=== PATIENT | male | born 1990 | race Caucasian/White ===

== ENCOUNTER 2019-05-16 08:13 | Emergency (ER) | payer SELFPAY ==
[2019-05-16] MEDS ORDERED: NS 0.9% 1000 ML** 1,000 ML IV ONE (08:24)
--- OUTSIDE RECORDS SUMMARY | 2019-05-16 08:26 | XMS REPORT | Continuity of Care Document ---
:1990 External Reference #:[id number] Author Name Loreta Bey Care Team Providers Name Role Phone Juve Acevedo MD Primary Care Physician Unavailable Payers Date Identification Numbers Payment Provider Subscriber Expires: 2019 Policy Number: [id number] Medicaid Misha [employer] Name: 1 1 [address] PayID: [id number] [place] [address] Expires: 2019 Policy Number: [id number] Medicaid Misha Mitchell Group Name: 1 1 [address] PayID: [id number] [place] [address] Problems Active Problems Provider Date Attention-deficit hyperactivity disorder, unspecified Juve Acevedo MD Onset: type Chronic hepatitis C Juve Acevedo MD Onset: 03/03/2019 Social History Type Date Description Comments Sex Unknown Tobacco Use Start: Unknown End: Unknown Patient is a former smoker Smoking Status Reviewed: 03/20/19 Patient is a former smoker Allergies, Adverse Reactions, Alerts Description No Known Drug Allergies Medications Description No Active Medications Vital Signs Date Vital Result Comment 03/20/2019 10:45am Height 71 inches 5'11" Weight 151.12 lb Heart Rate 72 /min BP Systolic Sitting 112 mmHg BP Diastolic Sitting 80 mmHg Respiratory Rate 14 /min Body Temperature 98.2 F BMI (Body Mass Index) 21.1 kg/m2 03/03/2019 11:56am Height 71 inches 5'11" Weight 152.00 lb Heart Rate 74 /min BP Systolic 118 mmHg BP Diastolic 82 mmHg O2 % BldC Oximetry 98 % BMI (Body Mass Index) 21.2 kg/m2 Results Test Date Facility Test Result H/L Range Note Laboratory test [facility] Hepatitis C 404640 Abnormal Undetected 1 finding [address] Rna Quant IU/[place] [address] [phone] Result in log IU/mL is 5.65. ADDITIONAL INFORMATION The quantification range of this assay is 15 to 100,000,000 IU/mL (1.18 log to 8.00 log IU/mL). Testing was performed using the dora HCV test ([employer] with the dora [employer]0 System. Test Performed by: [facility] [address] [place] [address] Encounters Type Date Location Provider Dx Diagnosis Office Visit 03/03/2019 [facility] Internal Juve Acevedo MD B18.2 Chronic viral 1:20p Medicine - [address] hepatitis C F90.9 Attention-deficit hyperactivity disorder, unspecified type Plan of Treatment Future Appointment(s):04/02/2019 1:30 pm - Brittany Jordan NP at [facility]94/01/2019 - Brittany Jordan NPB18.2 Chronic viral hepatitis CFollow up:2-3 weeks
--- OUTSIDE RECORDS SUMMARY | 2019-05-16 08:26 | XMS REPORT | Continuity of Care Document ---
:1990 External Reference #:[id number] Author Name Brittany Jordan NP (transmitted by agent of provider Loreta Bey) Address [address] [facility] [place] [address] Care Team Providers Name Role Phone Juve Acevedo MD - Hospitalist Care Team Information Training And Development Head [phone] Problems Active Problems Provider Date Attention-deficit hyperactivity disorder, unspecified Juve Acevedo MD Onset: type Chronic hepatitis C Juve Acevedo MD Onset: 03/03/2019 Social History Type Date Description Comments Sex Unknown ETOH Use Denies alcohol use Tobacco Use Start: Unknown End: Unknown Patient is a former smoker Recreational Drug Use Former Drug User Smoking Status Reviewed: 04/10/19 Patient is a former smoker Allergies, Adverse Reactions, Alerts Description No Known Drug Allergies Medications Description No Active Medications Immunizations Description No Information Available Vital Signs Date Vital Result Comment 04/10/2019 8:33am Height 71 inches 5'11" Weight 151.00 lb Heart Rate 72 /min BP Systolic Sitting 112 mmHg BP Diastolic Sitting 74 mmHg Respiratory Rate 14 /min Body Temperature 97.8 F BMI (Body Mass Index) 21.1 kg/m2 03/20/2019 10:45am Height 71 inches 5'11" Weight 151.12 lb Heart Rate 72 /min BP Systolic Sitting 112 mmHg BP Diastolic Sitting 80 mmHg Respiratory Rate 14 /min Body Temperature 98.2 F BMI (Body Mass Index) 21.1 kg/m2 Results Test Date Facility Test Result H/L Range Note Laboratory test 03/20/2019 [facility] Hepatitis B Negative Negative finding [address] [place] [address] [phone] Hepatitis C Rna Quant [id number] IU/mL Abnormal Undetected 1 Fibro Test-Actitest, 03/20/2019 [facility] FibroTest Score 0.08 Serum [address] [place], [place] [id number] [phone] FibroTest Stage F0 FibroTest Interpretation no fibrosis 2 ActiTest Score 0.31 ActiTest Grade A1 ActiTest Interpretation minimal activity 3 FibroTest-ActiTest Comment See Comment 4 [employer] Serial Number [id number] Apolipoprotein A1, S 179 mg/dL >=120 [id number], S 138 mg/dL 100 - 280 Haptoglobin, S 91 mg/dL 30 - 200 Alanine Aminotransferase (Alt) 65 U/L Abnormal 7-55 Gamma Glutamyltransferase GGT 26 U/L 8 - 61 Bilirubin, Total, S 0.8 mg/dL <=1.2 5 HIV 1&2 p24 03/20/2019 [facility] HIV 4th Negative Negative Screen [address] Generation [place], [place] [id number] [phone] Laboratory 03/20/2019 [facility] Hepatitis C 1a Abnormal Undetected 6 test finding [address] [place] [address] [phone] Comp 03/20/2019 [facility] Sodium 139 mmol/L Normal 135-145 Metabolic [address] Panel [place], [place] [id number] [phone] Potassium 3.9 mmol/L Normal 3.5-5.0 Chloride 102 mmol/L Normal 101-111 Co2 Carbon Dioxide 27 mmol/L Normal 22-32 Anion Gap 10 mmol/L Normal 2-11 Calcium 9.9 mg/dL Normal 8.6-10.3 Albumin 5.0 g/dL Normal 3.2-5.2 Total Bilirubin 1.00 mg/dL Normal 0.2-1.0 Glucose 86 mg/dL Normal 70-100 Blood Urea Nitrogen 13 mg/dL Normal 6-24 Creatinine 1.03 mg/dL Normal 0.67-1.17 BUN/Creatinine Ratio 12.6 Normal 8-20 Total Protein 8.1 g/dL Normal 6.4-8.9 Globulin 3.1 g/dL Normal 2-4 Albumin/Globulin Ratio 1.6 Normal 1-3 Alkaline Phosphatase 60 U/L Normal 34-104 Alt 60 U/L High 7-52 Ast 37 U/L Normal 13-39 Egfr Non- 86.6 >60 Egfr 104.8 >60 7 Laboratory 03/03/2019 [facility] Hepatitis C 596143 Abnormal Undetected 8 test finding [address] Rna Quant IU/[place] [address] [phone] 1 Result in log IU/mL is 5.34. ADDITIONAL INFORMATION The quantification range of this assay is 15 to 100,000,000 IU/mL (1.18 log to 8.00 log IU/mL). Testing was performed using the dora HCV test ([employer] with the dora Eli Nutrition0 System. Test Performed by: [facility] [address] [place] [address] 2 FibroTest estimates liver fibrosis FibroTest Score Stage Interpretation 0.00-0.21 F0 no fibrosis 0.21-0.27 F0-F1 no fibrosis 0.27-0.31 F1 minimal fibrosis 0.31-0.48 F1-F2 minimal fibrosis 0.48-0.58 F2 moderate fibrosis 0.58-0.72 F3 advanced fibrosis 0.72-0.74 F3-F4 advanced fibrosis 0.74-1.00 F4 severe fibrosis (Cirrhosis) 3 minimal activity ActiTest estimates necroinflammatory activity ActiTest Score Grade Interpretation 0.00-0.17 A0 no activity 0.17-0.29 A0-A1 no activity 0.29-0.36 A1 minimal activity 0.36-0.52 A1-A2 minimal activity 0.52-0.60 A2 significant activity 0.60-0.62 A2-A3 significant activity 0.62-1.00 A3 severe activity 4 The reliability of results is dependent on compliance with the preanalytical and analytical conditions recommended by [employer]. The tests have to be deferred for: acute hemolysis, acute hepatitis, acute inflammation, extra hepatic cholestasis. The advice of a specialist should be sought for interpretation in chronic hemolysis and Gilbert's syndrome. The test interpretation is not validated in liver transplant patients. Isolated extreme values of one of the components should lead to caution in interpreting the results. In case of discordance between a biopsy result and a test, it is recommended to seek advice of a specialist. The causes of these discordances could be due to a flaw of the test or to a flaw in the biopsy: i.e. a liver biopsy has a 33% variability rate for one fibrosis stage. FibroTest is interpretable for chronic hepatitis B and C, alcoholic and non alcoholic steatosis. ActiTest is interpretable for chronic hepatitis B and C. ADDITIONAL INFORMATION This test was developed and its performance characteristics determined by [facility] in a manner consistent with CLIA requirements. This test has not been cleared or approved by the U.S. Food and Drug Administration. 5 Test Performed by: [place] [id number] Test Performed by: [facility] [place] [address] 6 ADDITIONAL INFORMATION This test was performed using the Claire RealTime HCV Genotype II assay ([employer] [place], [place]). Test Performed by: [place] [address] 7 Because ethnic data is not always readily available, this report includes an eGFR for both -Americans and non- Americans. The National Kidney Disease Education Program (NKDEP) does not endorse the use of the MDRD equation for patients that are not between the ages of 18 and 70, are , have extremes of body size, muscle mass, or nutritional status, or are non- or non-. According to the National Kidney Foundation, irrespective of diagnosis, the stage of the disease is based on the level of kidney function: Stage Description GFR(mL/min/1.73 m(2)) 1 Kidney damage with normal or decreased GFR 90 2 Kidney damage with mild decrease in GFR 60-89 3 Moderate decrease in GFR 30-59 4 Severe decrease in GFR 15-29 5 Kidney failure <15 (or dialysis) 8 Result in log IU/mL is 5.65. ADDITIONAL INFORMATION The quantification range of this assay is 15 to 100,000,000 IU/mL (1.18 log to 8.00 log IU/mL). Testing was performed using the dora HCV test ([employer] with the dora [employer] Nutrition0 System. Test Performed by: [facility] [address] [place] [address] Procedures Description No Information Available Medical Devices Description No Information Available Encounters Type Date Location Provider Dx Diagnosis Office Visit 03/20/2019 [facility] Brittany Elias B18.2 Chronic viral 10:30a Infectious TIFFANY Jordan hepatitis C Diseases Office Visit 03/03/2019 [facility] Internal Juve Acevedo MD B18.2 Chronic viral 1:20p Medicine - [address] hepatitis C F90.9 Attention-deficit hyperactivity disorder, unspecified type Assessments Date Code Description Provider 04/10/2019 B18.2 Chronic viral hepatitis C Brittany Jordan NP 03/20/2019 B18.2 Chronic viral hepatitis C Brittany Jordan NP 03/03/2019 B18.2 Chronic viral hepatitis C Juve Acevedo MD 03/03/2019 F90.9 Attention-deficit hyperactivity Juve Acevedo MD disorder, unspecified type Plan of Treatment 04/10/2019 - Brittany Jordan NPB18.2 Chronic viral hepatitis CComments :Take Epclusa as directed. After 4 weeks you will need to have labs drawn. Please call the office with any questions or concerns.Follow up:6 weeks Functional Status Description No Information Available Mental Status Description No Information Available Referrals Refer to Reason for Referral Status Appt Date León Doe MD chronic hepatitis C infection (hx of IV Sent 2018 heroin). [address] [facility] [place] [address] [place] [address] [phone] [facility] History of ADHD as child, requesting Sent restart of psychostimulants. Has history of IVDU and incarceration. [address] [place] [address] [phone]
[2019-05-16 08:51] LABS: ABS Eosinophils 0.1 10^3/ul (0-0.6); ABS Lymphocytes 1.2 10^3/ul (1.0-4.8); ABS Monocytes 0.3 10^3/ul (0-0.8); ABS Neutrophils 4.5 10^3/ul (1.5-7.7); Eosinophil % 1.3 %; Hematocrit 45 % (42-52); Hemoglobin 15.6 g/dL (14.0-18.0); Lymphocyte % 19.1 %; Mean Corpuscular HGB Conc 35 g/dL (31-36); Mean Corpuscular Hemoglobin 32 pg (27-31); Mean Corpuscular Volume 91 fL (80-94); Mean Platelet Volume 7.5 fL (7.4-10.4); Nucleated Red Blood Cells % 0.1; Platelet Count 195 10^3/uL (150-450); Red Blood Count 4.91 10^6 /uL (4.18-5.48); Red Cell Distribution Width 13 % (10-15); White Blood Count 6.1 10^3/uL (3.5-10.8)
[2019-05-16 09:11] LABS: ALT 56 U/L (7-52); AST 61 U/L (13-39); Albumin 4.2 g/dL (3.2-5.2); Albumin/Globulin Ratio 1.9 (1-3); Alkaline Phosphatase 54 U/L (34-104); Anion Gap 7 mmol/L (2-11); Blood Urea Nitrogen 11 mg/dL (6-24); CO2 Carbon Dioxide 28 mmol/L (22-32); Calcium 8.6 mg/dL (8.6-10.3); Chloride 105 mmol/L (101-111); Creatine Kinase 163 U/L (10-223); EGFR African American 85.6 (>60); EGFR Non-African American 70.7 (>60); Globulin 2.2 g/dL (2-4); Glucose 175 mg/dL (70-100); Potassium 4.1 mmol/L (3.5-5.0); Sodium 140 mmol/L (135-145); Total Protein 6.4 g/dL (6.4-8.9)
--- NOTE | 2019-05-16 09:16 | ED ---
Substance Abuse/Use - HPI Summary HPI Summary: 29 year old male presenting to [facility] by EMS for a heroin overdose, last seen normal at 0430. EMS was called when the neighbors found him lying in the driveway shaking and unresponsive. EMS gave him 4 mg Narcan, 2mg IV and 2mg intranasally, without response. Supplies found by EMS and given to ED security, as per triage note. According to his girlfriend, the patient does not use regularly; it has been 4 month since last usage. She says he snorted heroin after she went to bed at 0430, and he admitted to snorting and injecting it this morning. He reports feeling freezing, dizzy, confused, and claims no recollection of heroin intake. He denies history of smoking, alcohol, or other drugs. - History Of Current Complaint Chief Complaint: EDOverdose Stated Complaint: POSSIBLE OVERDOSE Time Seen by Provider: 05/16/19 08:24 Hx Obtained From: Patient, EMS, Other: - Girlfriend Onset/Duration of Drug/ETOH Abuse: Hours Ingestion History: Type/Name Of Drug - Heroin, Approximate Time Of Ingestion - 0430 Overdose Characteristics: IV, Other - Intranasal Timing Of Abuse: Recent Cessation For A Period Of - 4 months Severity Initially: Moderate Severity Currently: Moderate Character: Other - Confused Alleviating Factor(s): Nothing - narcan did not alleviate Associated Signs And Symptoms: Confused, Tremulous Related Hx: Drug/Alcohol Last Used @ - 4 months ago - Allergies/Home Medications Allergies/Adverse Reactions: Allergies Allergy/AdvReac Type Severity Reaction Status Date / Time No Known Allergies Allergy Verified 05/17/19 03:25 Home Medications: Home Medications hydrOXYzine HCL TAB* [Atarax 25 MG TAB*] 25 mg PO TID PRN 05/16/19 [History Confirmed 05/16/19] PMH/Surg Hx/FS Hx/Imm Hx Previously Healthy: Yes Endocrine/Hematology History: Denies: Hx Diabetes Psychiatric History: Reports: Hx Substance Abuse Infectious Disease History: No Infectious Disease History: Denies: Traveled Outside the [place] in Last 30 Days - Family History Known Family History: Negative: Diabetes - Social History Alcohol Use: Occasionally Hx Substance Use: Yes Substance Use Type: Reports: Heroin Hx Tobacco Use: Yes Smoking Status (MU): Former Smoker Review of Systems Positive: Chills, Other - shaking Neurological: Other - Dizziness Positive: Other - Confused All Other Systems Reviewed And Are Negative: Yes Physical Exam - Summary Physical Exam Summary: NEURO EXAM VITAL SIGNS: Reviewed. GENERAL: Patient is a well-developed and nourished male who is lying in the stretcher shivering.Patient is not in any acute respiratory distress. HEAD AND FACE: No signs of trauma. No hematomas or skull depressions. No sinus tenderness. EYES: PERRLA, EOMI x 2, No injected conjunctiva, no nystagmus. No photophobia. EARS: Hearing grossly intact. Ear canals and tympanic membranes are within normal limits. MOUTH: Oropharynx within normal limits. NECK: Supple, trachea is midline, no adenopathy, no JVD, no carotid bruit, no c- spine tenderness, neck with full ROM. No meningeal signs, no Kernig's or Brudzinskis signs. CHEST: Symmetric, no tenderness at palpation. LUNGS: Clear to auscultation bilaterally. No wheezing or crackles. CVS: Regular rate and rhythm, S1 and S2 present, no murmurs or gallops appreciated. ABDOMEN: Soft, non-tender. No signs of distention. No rebound, no guarding, and no masses palpated. Bowel sounds are normal. EXTREMITIES: FROM in all major joints, no edema, no cyanosis or clubbing. NEURO: Alert and oriented x 3. No acute neurological deficits. Speech is normal and follows commands. SKIN: Dry and warm. GCS: 15 Triage Information Reviewed: Yes Vital Signs On Initial Exam: Initial Vitals Temp Pulse Resp BP Pulse Ox 97.4 F 75 16 125/92 99 05/16/19 08:18 05/16/19 08:18 05/16/19 08:18 05/16/19 08:18 05/16/19 08:18 Vital Signs Reviewed: Yes - [place] Coma Scale Best Eye Response: 4 - Spontaneous Best Motor Response: 6 - Obeys Commands Best Verbal Response: 5 - Oriented Coma Scale Total: 15 Diagnostics - Vital Signs Vital Signs Temp Pulse Resp BP Pulse Ox 05/16/19 08:18 97.4 F 75 16 125/92 99 - Laboratory Lab Results: Lab Results 05/16/19 Range/Units 08:41 WBC 6.1 (3.5-10.8) 10^3/uL RBC 4.91 (4.18-5.48) 10^6 /uL Hgb 15.6 (14.0-18.0) g/dL Hct 45 (42-52) % MCV 91 (80-94) fL MCH 32 H (27-31) pg MCHC 35 (31-36) g/dL RDW 13 (10-15) % Plt Count 195 (150-450) 10^3/uL MPV 7.5 (7.4-10.4) fL Neut % (Auto) 73.8 % Lymph % (Auto) 19.1 % [place] % (Auto) 5.4 % Eos % (Auto) 1.3 % Baso % (Auto) 0.4 % Absolute Neuts (auto) 4.5 (1.5-7.7) 10^3/ul Absolute Lymphs (auto) 1.2 (1.0-4.8) 10^3/ul Absolute Monos (auto) 0.3 (0-0.8) 10^3/ul Absolute Eos (auto) 0.1 (0-0.6) 10^3/ul Absolute Basos (auto) 0.0 (0-0.2) 10^3/ul Absolute Nucleated RBC 0.0 10^3/ul Nucleated RBC % 0.1 Result Diagrams: 05/16/19 08:41 05/16/19 08:41 Lab Statement: Any lab studies that have been ordered have been reviewed, and results considered in the medical decision making process. - CT Brain CT CT Interpretation Completed By: Radiologist Summary of CT Findings: Brain ct shows no acute intracranial pathology. ED Physician has reviewed this report. - EKG 0836 Cardiac Rate: NL - 81 bpm EKG Rhythm: Sinus Rhythm Summary of EKG Findings: EKG at 0836 shows normal sinus rhythm at 81 bpm. No STEMI. No acute changes. Re-Evaluation - Re-Evaluation 1st Re-eval Re-Evaluation Time: 09:49 Change: Worse Comment: Re-eval at 0949. Patient complains of headache. Girlfriend states that abrasion on cheek is from falling on the pavement. Course/Dx - Course Assessment/Plan: Patient is a 21-year-old male who presents to the emergency department via ambulance with a chief complaint of being found in the neighbor s driveway. The patient was on the ground unresponsive. As per EMS the patient had agonal breathing, he was given 4 mg Narcan, Toradol, and the patient woke up. At this time the patient is alert and oriented 3. He has no complaints at this time. Blood tests without any significant abnormality except for creatinine 1.22, glucose 174, lactic acid is 2.6, AST is 61 and AST 56. Salicylates, acetaminophen, serum alcohol within normal limits. In the ED course the patient continues to be hemodynamically stable. Patient has no complaints. Patients girlfriend reported that he might of had a head contusion therefore decided to do a head CT. Head CT impression: No acute intracranial pathology. At this point the patient is alert and oriented 3. The patient is sober and ambulating. The patient is eating and drinking without any nausea vomiting. The patient will be discharged home with his mother. Patient declined to give a urine sample. Mother agrees. I discussed all the findings and test results with the patient. Patient was instructed to return to the emergency room immediately if any of the symptoms return or worsen. Plan of care was discussed with the patient and understands and agrees. All questions were answered at patient satisfaction. There were no further complaints or concerns. Lung exam before discharge: CTA B/L. Good air exchange. No wheezing or crackles heard. CVS: S1 and S2 present. No murmurs appreciated. Patient is alert and oriented x 3. Patient is hemodynamically stable. Patient will be discharged home with follow up PCP in the next 2-3 days - Diagnoses Provider Diagnoses: Overdose Discharge ED - Sign-Out/Discharge Documenting (check all that apply): Patient Departure Patient Received Moderate/Deep Sedation with Procedure: No - Discharge Plan Condition: Stable Disposition: HOME Referrals: Juve Acevedo MD [Primary Care Provider] - Additional Instructions: Follow up with your primary care provider in 2-3 days. Return to the Emergency Department if symptoms worsen. - Billing Disposition and Condition Condition: STABLE Disposition: Home - Attestation Statements Document Initiated by Scribe: Yes Documenting Scribe: Maxine Acosta Provider For Whom Scribe is Documenting (Include Credential): Dr. Wilfredo Ash MD. Scribe Attestation: IDaniel Kathryn O'Connor, scribed for Dr. Wilfredo Ash MD. on at 1121. Scribe Documentation Reviewed: Yes Provider Attestation: The documentation as recorded by the scribe, Daniel Quinn, Maxine Ness accurately reflects the service I personally performed and the decisions made by me, Dr. Wilfredo Ash MD. Status of Scribe Document: Viewed
[2019-05-16 09:18] LABS: Acetaminophen < 15 mcg/mL; Alcohol < 10 mg/dL (<10); Salicylate < 2.50 mg/dL (<30)
[2019-05-16] MEDS ORDERED: Naloxone* 0.4 MG/ML 10 ML VIAL ONE (09:56)
[2019-05-16] MEDS ORDERED: Naloxone* 0.4 MG/ML 1 ML VIAL IV PUSH ONE (10:02)
[2019-05-16 11:48] VITALS: BP 115/70
== END 2019-05-16 11:36 | disposition home or self-care (01) ==
LOC: ED 08:13
DX: T40.1X1A Poisoning by heroin, accidental (unintentional), initial encounter (principal); Y92.9 Unspecified place or not applicable; Z87.891 Personal history of nicotine dependence
CPT/HCPCS: 36415; 70450; 80053; 80320; 80329; 82550; 83605; 85025; 93005; 96361; 96374; 99282; G0480; J2310

== ENCOUNTER 2019-05-17 03:08 | Emergency (ER) | payer SELFPAY ==
--- NOTE | 2019-05-17 03:38 | ED ---
Medical Screening - HPI Summary HPI Summary: This patient is a 29 year old male presenting to [facility] with a chief complaint of drug test. He had an overdose yesterday morning and was here when he stated he used overdoses. He initially revealed a urine drug test but now wants to have one because he is concerned there was fentanyl. He states he was an IV drug user 5-6 years ago and he has not used drugs. He states 2 hours ago he started to feel strange. He did not recall taking the drugs for his overdose and states he has no desire to do them. - History of Current Complaint Chief Complaint: EDGeneral Stated Complaint: GENERAL PER PT PMH/Surg Hx/FS Hx/Imm Hx Endocrine/Hematology History: Denies: Hx Diabetes Psychiatric History: Reports: Hx Substance Abuse Infectious Disease History: Yes Infectious Disease History: Denies: Traveled Outside the US in Last 30 Days - Family History Known Family History: Negative: Diabetes - Social History Alcohol Use: Occasionally Hx Substance Use: Yes Substance Use Type: Reports: Heroin Hx Tobacco Use: Yes Smoking Status (MU): Former Smoker Review of Systems Negative: Fever Positive: no symptoms reported All Other Systems Reviewed And Are Negative: Yes Physical Exam - Summary Physical Exam Summary: Appearance: Well-appearing, Well-nourished, lying in bed comfortable Skin: Warm, dry, no obvious rash Eyes: sclera anicteric, no conjunctival pallor ENT: mucous membranes moist Neck: deferred Respiratory: No signs of respiratory distress Cardiovascular: Appears well perfused, pulses are nml Abdomen: deferred Musculoskeletal: Moving all 4 extremities without obvious discomfort Neurological: Awake and alert, mentation is normal, speech is fluent and appropriate Psychiatric: affect is normal, does not appear anxious or depressed Triage Information Reviewed: Yes Vital Signs On Initial Exam: Initial Vitals Temp Pulse Resp BP Pulse Ox 99.0 F 84 16 160/91 96 05/17/19 03:20 05/17/19 03:20 05/17/19 03:20 05/17/19 03:20 05/17/19 03:20 Vital Signs Reviewed: Yes Procedures - Sedation Patient Received Moderate/Deep Sedation with Procedure: No Diagnostics - Vital Signs Vital Signs Temp Pulse Resp BP Pulse Ox 05/17/19 03:20 99.0 F 84 16 160/91 96 - Laboratory Lab Statement: Any lab studies that have been ordered have been reviewed, and results considered in the medical decision making process. Course/Dx - Course Course Of Treatment: This patient is a 29 year old male presenting to [facility] with a chief complaint of drug test. This patient is a 29 year old male presenting to [facility] with a chief complaint of drug test. The patient chose to leave prior to the release of his results. A plan for discharge was discussed and he was agreeable with this plan. - Diagnoses Provider Diagnoses: Encounter for drug screening Discharge ED - Sign-Out/Discharge Documenting (check all that apply): Patient Departure - Discharge Patient Received Moderate/Deep Sedation with Procedure: No - Discharge Plan Condition: Good Disposition: HOME Patient Education Materials: Opioid Use Disorder (ED) Referrals: Juve Acevedo MD [Primary Care Provider] - 3 Days Additional Instructions: I don't think your difficulties tonight are due to opioids, more likely is your brain was deprived of oxygen when you were passed out. It may take a few weeks even to get back to normal. I would recommend that you get some type of help with your opioid problem. Relapses are more the rule than the exception, and having a plan can be very useful if you start to relapse. - Billing Disposition and Condition Condition: GOOD Disposition: Home - Attestation Statements Document Initiated by Ladonna: Yes Documenting Stevenibe: Bear Orr Provider For Whom Ladonna is Documenting (Include Credential): Yaya Aponte MD Scribe Attestation: Bear Askew scribed for Yaya Aponte MD on 05/23/19 at 0415. Scribe Documentation Reviewed: Yes Provider Attestation: The documentation as recorded by the Bear henderson accurately reflects the service I personally performed and the decisions made by me, Yaya Aponte MD Status of Scribe Document: Viewed
[2019-05-17 05:20] VITALS: BP 0/0
[2019-05-17 05:29] LABS: Urine Benzodiazepine Screen None Detected (None Detect); Urine Opiates Screen Presumptive Positive (None Detect)
== END 2019-05-17 05:19 | disposition home or self-care (01) ==
LOC: ED 03:08
DX: Z02.89 Encounter for other administrative examinations (principal); F11.11 Opioid abuse, in remission; Z87.891 Personal history of nicotine dependence
CPT/HCPCS: 80307; 99282